=== PATIENT | female | born 1960 | race African-American/Black ===

== ENCOUNTER 2017-02-11 09:42 | Emergency (ER) | payer OTHER ==
[~2017-02-11] VITALS: Ht 170.2 cm; Wt 115.2 kg
[~2017-02-11 09:42] MED LIST: ATORVASTATIN CA40 MG PO; BUTALB-APAP-CA1 EACH PO; COZAAR100 MG PO; FLEXERIL PO; GLUCOPHAGE XR500 MG PO; HYDROCHLOROTHIA50 MG PO; HYDROCODON-ACE1 EAC8 PO; LEVEMIR SUBQ; LISINOPRIL2.5 M1 PO; LORAZEPAM 2MG TA2 M1 PO; MOBIC15 MG PO; NAPROSYN375 MG PO; NAPROSYN500 MG PO; OSENI 25-30 MG1 EACH PO; POTASSIUM20 PO; ULTRAM 50MG TAB50 MG PO; VICTOZA0.6 MG/0.1 SUBQ; ZOLOFT 50 MG TA50 M1 PO; ZOLOFT100 MG PO
[2017-02-11] MEDS ORDERED: NAPROSYN500 MG PO (11:06)
[2017-02-11 11:13] VITALS: BP 149/80
== END 2017-02-11 11:14 | disposition home or self-care (01) ==
LOC: ER 09:42
DX: M54.9 Dorsalgia, unspecified (principal); G89.29 Other chronic pain; Z98.890 Other specified postprocedural states

== ENCOUNTER → 2017-02-21 | Outpatient (CLI) | payer OTHER ==
[~2017-02-21] VITALS: Ht 170.2 cm; Wt 121.5 kg
[~2017-02-21] MED LIST changes: +HYDROCODONE-AP1 EA11 PO
--- NOTE | ~2017-02-21 | HPC ---
[facility] [place] [address] PAIN MANAGEMENT CONSULTATION Name: SERG CASE Room #: REG [facility] Andrea#: [id number] Admission: 02/21/17 Attend Phys: Devin Castillo DO Discharge: Date of : 60 Report #: [id number] THIS REPORT FOR: //name// CC: Chris Castillo DATE OF SERVICE: 02/21/2017 The patient is a delightful 56-year-old female being treated for lumbosacral spondylosis, SI mediated pain, history of DJD affecting hands, shoulders and knees. The patient was seen in the pain clinic 02/17/2017. We talked on moving forward with bilateral SI joint injections under fluoroscopy. Unfortunately, she had a prior injection within 29 days and insurance will not pay for the procedure. She is now out of insurance as the month has cycled into February. She elected to proceed with SI joint injection under fluoroscopy, understanding that it has afforded her good relief in the past. I agreed to charge the patient Medicare reimbursement rates, with ($127.71). Physical exam is unchanged. Still ongoing pain, bilateral SI joints, exacerbated with standing, walking and bending. Distraction. Doug and gaenslen tests were all positive last Tuesday. They remain unchanged. ASSESSMENT: Symptomatic lumbosacral spondylosis, sacroiliac mediated pain. PROCEDURE: Bilateral SI joint injection under fluoroscopy. PROCEDURE NOTE: After written and informed consent was obtained including risk of infection, nerve trauma, increased pain and weakness, the patient wishes to proceed. The patient was taken to the fluoroscopy suite, placed in the prone position. The sacroiliac joint was visualized using the C-arm, turned in an oblique fashion to align the joint. The skin overlying the area was cleansed with ChloraPrep. Skin wheal with Xylocaine was raised. A 22 gauge spinal needle was inserted into the inferior aspect of the joint. A low volume extension tubing was then attached to the needle after the stylet was removed. Negative aspiration was accomplished. A 1 mL of Omnipaque was injected which showed spread within the SI joint. 40 mg triamcinolone plus 2 mL of 0.5% preservative-free bupivacaine was injected into the joint. Needle was removed. Attention was then turned to the contralateral joint which was treated in an identical fashion. After both needles were removed the prep was washed off. Two Band-Aids were applied over the puncture sites. [place] [address] PAIN MANAGEMENT CONSULTATION Name: SERG CASE Room #: REG CLVianey Mendez#: [id number] Admission: 02/21/17 Attend Phys: Devin Castillo DO Discharge: Date of : 60 Report #: [id number] ambulate to the recovery room, monitored for an appropriate period of time, discharged in good and stable condition. <ELECTRONICALLY SIGNED> By: Devin Castillo DO 02/23/17 [id number] Devin Castillo DO /nt
[2017-02-21 12:49] VITALS: BP 145/100
== END | disposition home or self-care (01) ==
LOC: PAIN 07:32
DX: M53.3 Sacrococcygeal disorders, not elsewhere classified (principal); M47.817 Spondylosis without myelopathy or radiculopathy, lumbosacral region; M19.042 Primary osteoarthritis, left hand; M19.041 Primary osteoarthritis, right hand

== ENCOUNTER 2017-04-10 16:51 | Emergency (ER) | payer OTHER ==
[~2017-04-10] VITALS: Ht 170.2 cm; Wt 120.2 kg
[2017-04-10] MEDS ORDERED: NORCO 5-325 TA1 EACH PO (17:48)
[2017-04-10] MEDS ORDERED: IBUPROFEN 600600 M1 PO (17:48)
[2017-04-10 18:09] VITALS: BP 136/91
== END 2017-04-10 18:57 | disposition home or self-care (01) ==
LOC: ER 16:51
DX: S82.61XA Displaced fracture of lateral malleolus of right fibula, initial encounter for closed fracture (principal); M25.512 Pain in left shoulder; Z90.49 Acquired absence of other specified parts of digestive tract; X50.1XXA Overexertion from prolonged static or awkward postures, initial encounter; Y93.89 Activity, other specified; Y92.89 Other specified places as the place of occurrence of the external cause; Y99.8 Other external cause status

== ENCOUNTER 2018-07-06 14:37 | Emergency (ER) | payer OTHER ==
[~2018-07-06] VITALS: Ht 170.2 cm; Wt 117.9 kg
[2018-07-06 14:37] VITALS: BP 169/88
[~2018-07-06 14:37] MED LIST changes: +IBUPROFEN 600600 M1 PO; +NORCO 5-325 TA1 EACH PO
[2018-07-06] MEDS ORDERED: VICTOZA0.6 MG/0.1 SUBQ (14:41)
== END 2018-07-06 15:06 | disposition home or self-care (01) ==
LOC: ER 14:37
DX: S61.215D Laceration without foreign body of left ring finger without damage to nail, subsequent encounter (principal); Z90.49 Acquired absence of other specified parts of digestive tract; Z96.659 Presence of unspecified artificial knee joint; Z98.890 Other specified postprocedural states; X58.XXXD Exposure to other specified factors, subsequent encounter

== ENCOUNTER 2018-08-10 18:51 | Emergency (ER) | payer OTHER ==
[~2018-08-10] VITALS: Ht 170.2 cm; Wt 115.7 kg
[2018-08-10 18:55] VITALS: BP 154/71
[2018-08-10] MEDS ORDERED: NORCO 5-325 TA1 EACH PO (19:48)
[2018-08-10] MEDS ORDERED: IBUPROFEN 800800 M1 PO (19:50)
== END 2018-08-10 20:02 | disposition home or self-care (01) ==
LOC: ER 18:51
DX: S46.091A Other injury of muscle(s) and tendon(s) of the rotator cuff of right shoulder, initial encounter (principal); Z90.49 Acquired absence of other specified parts of digestive tract; Z98.890 Other specified postprocedural states; X50.0XXA Overexertion from strenuous movement or load, initial encounter; Y92.810 Car as the place of occurrence of the external cause; Y93.89 Activity, other specified; Y99.8 Other external cause status